=== PATIENT | female | born 1970 | race Caucasian/White ===

== ENCOUNTER 2025-07-02 00:09 | Outpatient (CLI) | payer MEDICAID, SELFPAY ==
[2025-07-02 15:03] LABS: Hemoglobin A1C 7.5 % (<5.7)
[2025-07-02 15:06] LABS: Albumin 3.4 g/dL (3.4-5.0); Alkaline Phosphatase 104 U/L (46-116); Anion Gap 10.7 mmol/L (3-11); BUN 12 mg/dL (7-18); Bilirubin, Total 0.6 mg/dL (0.2-1.0); CO2 25.3 mmol/L (21.0-32.0); Calcium 8.4 mg/dL (8.5-10.1); Chloride 98 mmol/L (98-107); Cholesterol 264 mg/dL (<200); Glucose 214 mg/dL (74-106); HDL Cholesterol 13 mg/dL (>or=50); Potassium 4.0 mmol/L (3.5-5.1); Sodium 134 mmol/L (136-145); TSH (W/Ref FT4) 1.64 uIU/mL (0.36-3.74)
[2025-07-02 16:07] LABS: AST 10 U/L (15-37)
[2025-07-02 16:23] LABS: ALT 14 U/L (14-59)
[2025-07-03 09:59] LABS: HIV-1/2 Ag & Ab Screen Negative (Negative)
[2025-07-03 10:08] LABS: Hepatitis C Ab w Rflx HCV PCR Negative (Negative)
== END 2025-07-02 00:10 | disposition home or self-care (01) ==
LOC: LOS 00:09
PROVIDERS: PCP Nurse Practitioner Family; Visit Provider Nurse Practitioner Family
DX: Z00.00 Encounter for general adult medical examination without abnormal findings (principal); F32.A Depression, unspecified; I10 Essential (primary) hypertension; Z83.49 Family history of other endocrine, nutritional and metabolic diseases; C50.919 Malignant neoplasm of unspecified site of unspecified female breast
CPT/HCPCS: 36415; 80053; 80061; 83721; 86803; 87389; 83036; 84155; 84443

== ENCOUNTER → 2025-07-17 03:04 | Outpatient (CLI) | payer MEDICAID, SELFPAY ==
--- NOTE | 2025-07-17 07:30 | DI.MRI_ITS ---
Exam(s) MR LUMBAR SPINE WO EXAM: MR LUMBAR SPINE WO CLINICAL HISTORY: low back pain,M54.50. TECHNIQUE: Multiplanar multisequence MRI of the Lumbar spine was performed. COMPARISON: No exams were available for comparison FINDINGS: Bones: The last intervertebral disc space is designated the L5/S1 level for the numbering purpose of this examination. The vertebral body heights are well maintained. Alignment: Mild dextroscoliosis. The marrow signal characteristics are unremarkable. Cord: The conus tip ends at the T12 level. It is of normal size and signal intensity. T11-12: Small right paracentral disc protrusion which does not contact the cord. Small endplate osteophytes which project anteriorly. T12-L1: Small endplate osteophytes which project anteriorly. Minimal disc bulging. No focal disc herniation is present. No central spinal canal stenosis.No neural foraminal stenosis. L1-2:Small endplate osteophytes which project anteriorly. Minimal disc bulging. No focal disc herniation is present. No central spinal canal stenosis.No neural foraminal stenosis. L2-3:Small endplate osteophytes which project anteriorly. Minimal disc bulging. No focal disc herniation is present. No central spinal canal stenosis.No neural foraminal stenosis. L3-4: No focal disc herniation is present. No central spinal canal stenosis.No neural foraminal stenosis. L4-5: No focal disc herniation is present. Left-sided facet degenerative changes. No central spinal canal stenosis.No neural foraminal stenosis. L5-S1: No focal disc herniation is present. No central spinal canal stenosis.No neural foraminal stenosis. The visualized SI joints and sacrum are unremarkable. Soft tissues: The paraspinal soft tissues are unremarkable. IMPRESSION: Mild dextroscoliosis. Mild degenerative disc changes in the lumbar spine. No evidence of significant spinal stenosis or neuroforaminal narrowing. Small right paracentral disc protrusion at T11-12 which does not appear to impinge on spinal cord or cause neural foraminal narrowing. DATA REPOSITORY:
--- NOTE | 2025-07-17 15:04 | DI.RAD_ITS ---
Exam(s) XR LUMBAR SPINE COMPLETE EXAM: XR LUMBAR SPINE COMPLETE CLINICAL HISTORY: worsening low back pain,M54.50. TECHNIQUE: 2D digital imaging was performed. Five views. COMPARISON: No exams were available for comparison FINDINGS: BONES: No fracture or destructive lesion. Vertebral body heights are maintained. Mild facet hypertrophy identified at L4-5.. DISKS: Intervertebral disc spaces are maintained. There are small endplate osteophytes in the lower 3 thoracic region at and at L1-2. ALIGNMENT: Mild dextroscoliosis. SOFT TISSUE: Normal. IMPRESSION: Mild scoliosis. Mild degenerative disc changes and facet degenerative changes. DATA REPOSITORY: RADIATION DOSE DELIVERED:
== END ==
LOC: DI 03:05
PROVIDERS: PCP Nurse Practitioner Family; Visit Provider Nurse Practitioner Family
DX: M54.50 Low back pain, unspecified (principal); M41.80 Other forms of scoliosis, site unspecified; M51.360 Other intervertebral disc degeneration, lumbar region with discogenic back pain only; M51.24 Other intervertebral disc displacement, thoracic region
CPT/HCPCS: 72110; 72148

== ENCOUNTER → 2025-08-06 00:13 | Outpatient (CLI) | payer MEDICAID, SELFPAY ==
--- NOTE | 2025-08-06 06:45 | DI.MAMMO_ITS ---
Exam(s) MG MAMMO SCREENING 60 MIN DUR EXAM: MG MAMMO SCREENING 60 MIN DUR CLINICAL HISTORY: breast cancer screening,personal h/o breast ca,c50.919. TECHNIQUE: Bilateral full field digital CC and MLO mammographic images were obtained with 3D tomosynthesis and utilizing computer aided detection (CAD). COMPARISON: Prior mammograms were reviewed. FINDINGS: There are no new right breast findings. Scarring at the lumpectomy site in the upper outer quadrant of the left breast is again noted. There are presently 2 small adjacent microcalcifications at the left breast lumpectomy site which were not previously present on mammogram of May 2024. These presently have benign appearance. There are no other new significant microcalcifications evident. IMPRESSION: 1. No radiographic evidence of malignancy in the right breast. 2. There are 2 new small presently benign-appearing microcalcification at the left breast lumpectomy site. BI-RADS Category 2 - Benign Findings Breast Density - Category B - There are scattered areas of fibroglandular density. Breast density Category C or D implies that the patient has dense breast tissue. Dense breast tissue can make it harder to find cancer on a mammogram. Dense breast tissue is also associated with an increased risk of breast cancer. This information about the result of the mammogram report was provided to the patient to raise their awareness. Use this report when you speak with the patient about their risks for breast cancer, which includes their family history. At that time, you may recommend additional screening tests (Ultrasound or MRI) as these tests may add significant information. A negative radiographic report should not delay biopsy if a dominant or clinically suspicious mass is present. Up to ten percent of cancers are not identified on mammography. A negative report may reinforce clinical impression. Adenosis and dense breasts may obscure an underlying neoplasm. False positive reports average 6 to 10%. Patient will receive a letter notifying them of these results.
== END ==
LOC: DI 00:14
PROVIDERS: PCP Nurse Practitioner Family; Visit Provider Nurse Practitioner Family
DX: C50.919 Malignant neoplasm of unspecified site of unspecified female breast (principal); Z12.31 Encounter for screening mammogram for malignant neoplasm of breast
CPT/HCPCS: 77063; 77067